=== PATIENT | male | born 1975 | race Asian ===

== ENCOUNTER 2024-12-28 09:09 | Outpatient (CLI) | payer OTHER, SELFPAY ==
--- NOTE | ~2024-12-28 | US_ITS ---
EXAMINATION: US thyroid DATE: 12/28/2024 10:52 INDICATION: Hypothyroidism TECHNIQUE: Multiple ultrasound images of the thyroid were obtained. COMPARISON: None. FINDINGS: The right thyroid lobe measures 6.3 x 2.0 x 3.0 cm. The left thyroid lobe measures 6.2 x 2.1 x 2.8 c m. The thyroid isthmus measures 10 mm thickness. No discrete nodules identified. There is heterogeneo us echogenicity with coarsened echotexture and diffuse increased vascular flow throughout the thyroid on color Doppler which could be seen with thyroiditis. IMPRESSION: 1. Enlarged thyroid with diffuse coarsened echotexture and/or flow on color Doppler suggestive of thy roiditis. No discrete thyroid nodules. Reviewed, dictated and finalized at location A. IMPRESSION: 1. Enlarged thyroid with diffuse coarsened echotexture and/or flow on color Dop pler suggestive of thyroiditis. No discrete thyroid nodules.
--- NOTE | ~2024-12-28 | US_ITS ---
Limited Abdominal Sonogram: Real-time sonographic imaging of the right upper quadrant was performed. Clinical History: Abnormal liver enzymes Findings: The liver appears mildly echogenic with no evidence of mass lesion or bile duct dilatation . Probable focal fatty sparing adjacent to the gallbladder fossa. Main portal vein demonstrates reva l direction of flow. The gallbladder is well distended, and appears normal with no evidence of gallst one or wall thickening. The common bile duct measures 4 mm. The visualized pancreas, aorta, and IVC are unremarkable. Impression: Diffuse fatty infiltration of the liver. Reviewed, dictated and finalized at location M. Impression: Diffuse fatty infiltration of the liver.
--- OUTSIDE RECORDS SUMMARY | 2024-12-28 09:56 | XMS_ITS | Data Portability ---
Author Organization [facility], Main Office Address [address] [place] [address] Care Team Providers Care Charhouse Worker Name Role Phone JAVON OWENS Primary Care Provider Assessment Encounter Date Assessment Date Assessment LastModified by Organization Details LastModified Time 10/18/2023 10/18/2023 11/10/2022: ALT 62 LDL 113 A1C 6.2 Vit D 15.7 04/12/2023: A1C 6.3 VIT D 19.5 ALT 54 TSH 11.9, FT4 0.68 Not available 10/18/2023 10:48:42 04/17/2024 04/17/2024 11/10/2022: ALT 62 LDL 113 A1C 6.2 Vit D 15.7 04/12/2023: A1C 6.3 VIT D 19.5 ALT 54 TSH 11.9, FT4 0.68 10/20/2023: A1C 5.9 VIT D 19.3 TSH 4.780H, FT4 0.57 Not available 04/17/2024 11:18:47 10/30/2024 10/30/2024 11/10/2022: ALT 62 LDL 113 A1C 6.2 Vit D 15.7 04/12/2023: A1C 6.3 VIT D 19.5 ALT 54 TSH 11.9, FT4 0.68 10/20/2023: A1C 5.9 VIT D 19.3 TSH 4.780H, FT4 0.57 Not available 10/30/2024 12:19:26 Plan of Treatment Reminders Order Date Submit Date Provider Last Modified By Organization Details Last Modified Time Details Appointments None recorded. Lab vitamin D, 25-hydroxy , total, serum 2024 025 PAVEL [facility], [address], [place], [address], 5 03:08:11 HbA1c (hemoglobi n A1c), blood 2024 025 PAVEL [facility], [address], [place], [address], 5 03:08:10 microalbum in, urine 2024 025 PAVEL [facility], [address], [place], [address], 5 03:08:12 lipid panel, serum 2024 025 PAVEL [facility], [address], [place], [address], 03:08:09 CMP, serum or plasma 2024 025 PAVEL [facility], [address], [place], [address], 5 03:08:07 CBC w/ auto diff 2024 025 PAVEL [facility], [address], [place], [address], 5 03:08:06 TSH + free T4, serum 2024 025 P[facility]EL [facility], [address], [place], [address], 5 03:08:05 TSH + free T4, serum 2024 025 [email or web address] [facility], [address], [place], [address], 5 13:25:39 vitamin B12 + folate, serum or blood 2024 025 [facility], [address] [facility], [place], [address], 5 03:08:04 vitamin D, 25-hydroxy , total, serum 2023 024 [email or web address] [facility], [address] [facility], [facility] [address], [place], [address], 5 08:47:14 HbA1c (hemoglobi n A1c), blood 2023 024 [email or web address] [facility], [address] [facility], [facility] [address], [place], [address], 5 08:47:15 microalbum in, urine 2023 024 [email or web address] [facility], [address] [facility], [facility] [address], [place], [address], 5 08:47:15 lipid panel, serum 2023 024 [email or web address] [facility], [address] [facility], [facility] [address], [place], [address], 5 08:47:15 CMP, serum or plasma 2023 024 [email or web address] [facility], [address] [place] [address], [facility] [address], [place], [address], 5 08:47:15 CBC w/ auto diff 2023 024 [email or web address] [facility], [address] [place] [address], [facility] [address], [place], [address], 5 08:47:15 TSH + free T4, serum 2023 024 [facility], [address] [facility], [facility] [address], [place], [address], 5 08:47:15 TSH + free T4, serum 2023 024 [facility], [address] [facility], [facility] [address], [place], [address], 5 08:47:15 vitamin B12 + folate, serum or blood 2023 024 [email or web address] [facility], [address] [facility], [facility] [address], [place], [address], 5 08:47:14 vitamin D, 25-hydroxy , total, serum 2023 024 [email or web address] [facility], [address] [place] [address], [facility] [address], [place], [address], 4 10:20:12 HbA1c (hemoglobi n A1c), blood 2023 024 [email or web address] [facility], [address] [place] [address], [facility] [address], [place], [address], 4 10:20:13 microalbum in, urine 2023 024 P[facility]EL [facility], [address] [place] [address], [facility] [address], [place], [address], 4 13:39:42 lipid panel, serum 2023 024 [facility], [address] [place] [address], [facility] [address], [place], [address], 4 13:16:44 CMP, serum or plasma 2023 024 P[facility]EL [facility], [address] [place] [address], [facility] [address], [place], [address], 4 13:16:49 CBC w/ auto diff 2023 024 [facility], [address] [facility], [facility] [address], [place], [address], 4 13:23:00 TSH + free T4, serum 2023 024 [email or web address] [facility], [address] [facility] [address], [place], [address], 4 10:20:13 TSH + free T4, serum 2023 024 [email or web address] [facility], [address] [facility] [address], [place], [address], 4 10:20:13 vitamin B12 + folate, serum or blood 2023 024 [email or web address] [facility], [address] [facility] [address], [place], [address], 4 10:20:[address] referral - Please call patient to schedule an appointmen t. Thank you. 2024 025 [place], [address], [address], [place], [address], 5 09:56:[address] referral 2023 024 2 [place], [address], [address], [place], [address], 5 08:16:14 Procedures colonoscop y screening (PROC) 2023 024 PAVEL Allen MD, [address] [facility], [address], [place], [address], 4 13:49:19 Surgeries septoplast y (SURG) 2023 024 [email or web address] Not available 4 10:18:32 Imaging US, thyroid - Please call patient to schedule. 2024 025 [email or web address] [facility], [address] [facility] , [address], [place], [address], 5 09:04:55 US, thyroid 2023 024 [email or web address] Not available 5 11:27:09 Medication Orders Ciprodex 0.3 %-0.1 % ear drops,susp ension 2023 024 [address] [facility], [address] [place], [address], 5 11:52:33 cefdinir 300 mg capsule 2023 024 [address] [address], [address] [place] [address], [address], 5 11:52:26 Medrol (Jules) 4 mg tablets in a dose pack 2023 024 [email or web address] [facility] #3259, [address] [place] [address], [address], 4 11:30:02 Zyrtec 10 mg tablet 2023 024 PAVEL [facility] #3259, [address] [place] [address], [address], 4 12:03:34 Flonase Allergy Relief 50 mcg/actuat ion nasal spray,susp ension 2023 024 [email or web address] [facility] #3259, [address] [place] [address], [address], 4 15:00:00 Patient TargetsNo targets recorded. Patient InstructionsNo instructions recorded. 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 Thank you. Referring Physician: Javon Owens, Internal Medicine, Encounter Date: 10/30/2024 Results Created Date Observation Date Name Description Value Unit Range Abnormal Flag Note LastModifiedBy Organization Detail LastModifiedTime 10/20/1910/20/2023 LIPID PANEL cholesterol 180 mg/dL 140-19 9 [facility] CHAVA NSUS RECOM MENDA TION FOR LEVY STERO L: ADULT CHILD LOW RISK: <200 <170 BORDE RLINE : <200- 239 ----- HIGH RISK: >240 >[address] [facility] (Lab) [address] [place], [address], 10/20/2023 13:16:44 10/20/19 24 10/20/2023 LIPID PANEL triglyceride s 138 mg/dL 0-150 NIH CHAVA NSUS REPOR T RECOM MENDA TION FOR TRIGL YCERI HOOD: ADULT CHILD LOW RISK: <150 ----- BODER LINE: 150-1 99 ----- HIGH RISK: >200 ----- Not Available [facility] (Lab) [address] [place], [address], 10/20/2023 13:16:44 10/20/19 24 10/20/2023 LIPID PANEL HDL cholesterol 55 mg/dL 40- Not Available [facility] (Lab) [address] [place], [address], 10/20/2023 13:16:44 10/20/19 24 10/20/2023 LIPID PANEL LDL cholesterol, calculated 97 mg/dL 0-130 NIH CHAVA NSUS REPOR T RECOM MENDA TIONS FOR LDL: ADULT CHILD LOW RISK <130 <110 (OPTI MAL LDL) <100 ----- BORDE RLINE : 130-1 59 ----- HIGH RISK: >160 >130 A TRIGL YCERI DE RESUL T >400 INVAL IDATE S THE CALCU LATIO N FOR LDL FRACT IONAT ION - THE LDL RESUL T WILL NOT BE REPOR HANH. Not Available [facility] (Lab) [address] [place], [address], 10/20/2023 13:16:44 10/20/19 24 10/20/2023 COMPR EHENS LORENA METAB OLIC PANEL sodium 142 mmol/ L 137-14 [address] [facility] (Lab) [address] [place], [address], 10/20/2023 13:16:49 10/20/19 24 10/20/2023 COMPR EHENS LORENA METAB OLIC PANEL potassium 4.4 mmol/ L 3.5-5. [address] [facility] (Lab) [address] [place], [address], 10/20/2023 13:16:49 10/20/19 24 10/20/2023 COMPR EHENS LORENA METAB OLIC PANEL chloride 108 mmol/ L 98-107 high Not Available [facility] (Lab) [address] [place], [address], 10/20/2023 13:16:49 10/20/19 24 10/20/2023 COMPR EHENS LORENA METAB OLIC PANEL carbon dioxide 28 mmol/ L 22-[address] [facility] (Lab) [address] [place], [address], 10/20/2023 13:16:49 10/20/19 24 10/20/2023 COMPR EHENS LORENA METAB OLIC PANEL anion gap 10.4 mmol/ L 14-22 low Not Available [facility] (Lab) [address] [place], [address], 10/20/2023 13:16:49 10/20/19 24 10/20/2023 COMPR EHENS LORENA METAB OLIC PANEL glucose 102 mg/dL 70-99 high Not Available [facility] (Lab) [address] [place], [address], 10/20/2023 13:16:49 10/20/19 24 10/20/2023 COMPR EHENS LORENA METAB OLIC PANEL BUN 12 mg/dL 8-[address] [facility] (Lab) [address] [place], [address], 10/20/2023 13:16:49 10/20/1910/20/2023 COMPR EHENS LORENA METAB OLIC PANEL creatinine 0.89 mg/dL 0.66-1 .[address] [facility] (Lab) [address] [place], [address], 10/20/2023 13:16:49 10/20/19 24 10/20/2023 COMPR EHENS LORENA METAB OLIC PANEL GFR >60 Refer ence Range : [facility] GFR Healt hy Adult : >60 mL/mi n/1.7 3 m2 Chron ic Kidne y Disea se: 15-60 mL/mi n/1.7 3 m2 Kidne y Failu re: <15/m L/min /1.73 m2 www.n iddk. nih.g ov The MDRD study equat ion has not been valid ated in child sal <18 years of age; pregn ant women ; the elder ly >85 years of age; or in some racia l or ethni c subgr oups, such as Hisar nics. Outsi de the valid ated saji eters , estim ated GFR is less accur ate, requi ring clini pilar judgm ent on a case- by-ca se basis . Clini pilar inter preta tion for other races and ages must be made by the clini an. The MDRD study equat ion has not been valid ated for the evalu ation of serum creat inine relat ed to nutri karen l statu s or medic ation usage . For perso ns <18 years of age, a pedia tric GFR calcu lator is avail able on the NKF websi te: https ://keyur alarcon.jose ward/piedad storey s/vano qi/gf r_cal culat or Not Available [facility] (Lab) [address] [place], [address], 10/20/2023 13:16:49 10/20/19 24 10/20/2023 COMPR EHENS LORENA METAB OLIC PANEL alkaline phosphatase 51 U/L 38-126 Not Available [facility] (Lab) [address] [place], [address], 10/20/2023 13:16:49 10/20/19 24 10/20/2023 COMPR EHENS LORENA METAB OLIC PANEL alanine aminotransfe rase 61 U/L 0-50 high Not Available [facility] (Lab) [address] [place], [address], 10/20/2023 13:16:49 10/20/19 24 10/20/2023 COMPR EHENS LORENA METAB OLIC PANEL aspartate aminotransfe rase 38 U/L 15-46 Not Available [facility] (Lab) [address] [place], [address], 10/20/2023 13:16:49 10/20/19 24 10/20/2023 COMPR EHENS LORENA METAB OLIC PANEL bilirubin, total 0.80 mg/dL 0.20-1 .[address] [facility] (Lab) [address] [facility] [place], [address], 10/20/2023 13:16:49 10/20/19 24 10/20/2023 COMPR EHENS LORENA METAB OLIC PANEL calcium 9.7 mg/dL 8.4-10 .[address] [facility] (Lab) [address] [place], [address], 10/20/2023 13:16:49 10/20/19 24 10/20/2023 COMPR EHENS LORENA METAB OLIC PANEL total protein 7.6 g/dL 6.3-8. [address] [facility] (Lab) [address] [facility] [place], [address], 10/20/2023 13:16:49 10/20/19 24 10/20/2023 COMPR EHENS LORENA METAB OLIC PANEL albumin 4.7 g/dL 3.4-5. [address] [facility] (Lab) [address] [place], [address], 10/20/2023 13:16:49 10/20/19 24 10/20/2023 COMPR EHENS LORENA METAB OLIC PANEL globulin 2.9 g/dL 2.6-4. [address] [facility] (Lab) [address] [place], [address], 10/20/2023 13:16:49 10/20/19 24 10/20/2023 COMPR EHENS LORENA METAB OLIC PANEL A/G ratio 1.6 ratio 1.0-2. [address] [facility] (Lab) [address] [facility] [place], [address], 10/20/2023 13:16:49 10/20/19 24 10/20/2023 CBC/C OMPLE TE BLD COUNT W/DIF F white blood cells 7.0 x10'3 /uL 4.2-10 .[address] [facility] (Lab) [address] [place], [address], 10/20/2023 13:23:00 10/20/19 24 10/20/2023 CBC/C OMPLE TE BLD COUNT W/DIF F red blood cells 5.56 x10'6 /uL 4.10-5 .[address] [facility] (Lab) [address] [place], [address], 10/20/2023 13:23:00 10/20/19 24 10/20/2023 CBC/C OMPLE TE BLD COUNT W/DIF F hemoglobin 15.6 g/dL 13.2-1 7.[address] [facility] (Lab) [address] [place], [address], 10/20/2023 13:23:00 10/20/19 24 10/20/2023 CBC/C OMPLE TE BLD COUNT W/DIF F hematocrit 47.8 % 39.3-5 0.[address] [facility] (Lab) [address] [place], [address], 10/20/2023 13:23:00 10/20/19 24 10/20/2023 CBC/C OMPLE TE BLD COUNT W/DIF F mean red cell volume 86.0 fL 80.0-9 7.[address] [facility] (Lab) [address] [place], [address], 10/20/2023 13:23:00 10/20/19 24 10/20/2023 CBC/C OMPLE TE BLD COUNT W/DIF F mean red cell hemoglobin 28.1 pg 27.0-3 3.[address] [facility] (Lab) [address] [place], [address], 10/20/2023 13:23:00 10/20/19 24 10/20/2023 CBC/C OMPLE TE BLD COUNT W/DIF F mean RBC HGB concentratio n 32.6 g/dL 31.0-3 6.[address] [facility] (Lab) [address] [place], [address], 10/20/2023 13:23:00 10/20/19 24 10/20/2023 CBC/C OMPLE TE BLD COUNT W/DIF F red cell distribution width 13.3 % 11.8-1 5.[address] [facility] (Lab) [address] [place], [address], 10/20/2023 13:23:00 10/20/19 24 10/20/2023 CBC/C OMPLE TE BLD COUNT W/DIF F platelets 193 x10'3 /uL 150-40 [address] [facility] (Lab) [address] [place], [address], 10/20/2023 13:23:00 10/20/19 24 10/20/2023 CBC/C OMPLE TE BLD COUNT W/DIF F mean platelet volume 12.1 fL 9.0-12 .[address] [facility] (Lab) [address] [place], [address], 10/20/2023 13:23:00 10/20/19 24 10/20/2023 CBC/C OMPLE TE BLD COUNT W/DIF F neutrophils 52.1 % 39.0-7 2.[address] [facility] (Lab) [address] [place], [address], 10/20/2023 13:23:00 10/20/19 24 10/20/2023 CBC/C OMPLE TE BLD COUNT W/DIF F lymphocytes 38.6 % 16.0-4 7.[address] [facility] (Lab) [address] [place], [address], 10/20/2023 13:23:00 10/20/19 24 10/20/2023 CBC/C OMPLE TE BLD COUNT W/DIF F monocytes 6.6 % 5.0-12 .[address] [facility] (Lab) [address] [place], [address], 10/20/2023 13:23:00 10/20/19 24 10/20/2023 CBC/C OMPLE TE BLD COUNT W/DIF F eosinophils 1.7 % 1.0-7. [address] [facility] (Lab) [address] [place], [address], 10/20/2023 13:23:00 10/20/19 24 10/20/2023 CBC/C OMPLE TE BLD COUNT W/DIF F basophils 0.7 % 0.0-2. [address] [facility] (Lab) [address] [place], [address], 10/20/2023 13:23:00 10/20/19 24 10/20/2023 CBC/C OMPLE TE BLD COUNT W/DIF F immature granulocytes 0.3 % 0.00-0 .[address] [facility] (Lab) [address] [place], [address], 10/20/2023 13:23:00 10/20/19 24 10/20/2023 CBC/C OMPLE TE BLD COUNT W/DIF F neutrophils, absolute count 3.62 x10'3 /uL 1.5-8. [address] [facility] (Lab) [address] [place], [address], 10/20/2023 13:23:00 10/20/19 24 10/20/2023 CBC/C OMPLE TE BLD COUNT W/DIF F lymphocytes, absolute count 2.68 x10'3 /uL 1.07-3 .[address] [facility] (Lab) [address] [place], [address], 10/20/2023 13:23:00 10/20/19 24 10/20/2023 CBC/C OMPLE TE BLD COUNT W/DIF F monocytes, absolute count 0.46 x10'3 /uL 0.29-0 .[address] [facility] (Lab) [address] [place], [address], 10/20/2023 13:23:00 10/20/19 24 10/20/2023 CBC/C OMPLE TE BLD COUNT W/DIF F eosinophils, absolute count 0.12 x10'3 /uL 0.02-0 .[address] [facility] (Lab) [address] [place], [address], 10/20/2023 13:23:00 10/20/19 24 10/20/2023 CBC/C OMPLE TE BLD COUNT W/DIF F basophils, absolute count 0.05 x10'3 /uL 0.01-0 .[address] [facility] (Lab) [address] [place], [address], 10/20/2023 13:23:00 10/20/19 24 10/20/2023 CBC/C OMPLE TE BLD COUNT W/DIF F immature granulocytes ,absolute 0.02 x10'3 /uL 0.00-0 .[address] [facility] (Lab) [address] [place], [address], 10/20/2023 13:23:00 10/20/19 24 10/20/2023 CBC/C OMPLE TE BLD COUNT W/DIF F nucleated red blood cells 0.0 % -0 Not Available [facility] (Lab) [address] [place], [address], 10/20/2023 13:23:00 10/20/19 24 10/20/2023 CBC/C OMPLE TE BLD COUNT W/DIF F NRBC# 0.00 x10'3 /uL Not Available [facility] (Lab) [address] [place], [address], 10/20/2023 13:23:00 10/20/19 24 10/20/2023 MICRO ALBUM IN RANDO M URINE microalbumin , urine 10.9 mg/L 0.0-16 .[address] [facility] (Lab) [address] [place], [address], 10/20/2023 13:39:42 10/20/19 24 10/20/2023 T4 FREE free T4 0.57 NG/dL 0.78-2 .19 low Not Available [facility] (Lab) [address] [place], [address], 10/20/2023 13:43:41 10/20/19 24 10/20/2023 TSH thyroid-stim ulating hormone 4.780 uIU/m L 0.465- 4.680 high Not Available [facility] (Lab) [address] [place], [address], 10/20/2023 13:46:09 10/20/19 24 10/20/2023 HEMOG LOBIN A1C HA1C 5.9 % 4.0-6. 0 Diabe ricardo Sophiee jay Crite mercy: <5.7% Consi stent with absen ce of diabe ricardo 5.7-6 .4% Consi stent with incre ased risk for diabe ricardo (pred iabet es) >OR=6 .5% Consi stent with diabe ricardo REFER ENCE: Diabe ricardo Care 2016, 39([place] ppl.1 ):s13 -s22 Not Available [facility] (Lab) [address] [place], [address], 10/20/2023 14:14:22 10/20/19 24 10/20/2023 VITAM IN B12 (CORDELIA CHRIS ) vb12 284 pg/mL 239-93 [address] [facility] (Lab) [address] [place], [address], 10/20/2023 14:17:54 10/20/19 24 10/20/2023 FOLAT E, SERUM /PLAS MA folate 9.59 NG/mL 2.76-2 0.[address] [facility] (Lab) [address] [place], [address], 10/20/2023 14:18:04 10/20/19 24 10/20/2023 VITAM IN D 25-HY DROXY vd25oh 19.3 NG/mL 30-100 low Vitam in D Statu s: Defic ient: <20 ng/mL Insuf ficie nt: 20-29 ng/mL Suffi cient : 30-10 0 ng/mL Not Available [facility] (Lab) [address] [place], [address], 10/20/2023 23:45:13 09/24/19 24 09/24/2023 exerc ise stres s test No observ ation record ed. [email or web address] [facility] [address], [place], [address], 10/24/2023 21:58:01 09/27/19 24 09/24/2023 US, echoc ardio gram No observ ation record ed. [email or web address] [facility] [address], [place], [address], 10/24/2023 21:58:01 09/28/19 24 09/28/2023 CT, coron cristopher calci um score No observ ation record ed. [email or web address] [facility] [address], [place], [address], 10/24/2023 21:58:02 Result Notes None recorded. Problems Name Problem SNOMED Code Status Onset Date Resolution Date Notes Provider Name and Address Organization Details Recorded Time Acute sinusitis 93452029 Active 2021 Not Available [facility] 3 00:05:39 Cobalamin deficiency 725148074 Active 2022 Not Available [facility] 3 00:05:39 Thyroid nodule 990625513 Active 2021 Not Available [facility] 3 00:05:39 Anemia 676143098 Active 2021 Not Available [facility] 3 00:05:39 Vitamin D deficiency 01381066 Active 2021 Not Available [facility] 3 00:05:39 Hypothyroi dism 11830867 Active 2021 Not Available [facility] 3 00:05:39 Vitamin B12 deficiency (non anemic) 82462365 Active 2021 Not Available [facility] 3 00:05:39 Hyperglyce marissa 44997705 Active 2021 Not Available [facility] 3 00:05:39 Serum vitamin B12 below reference range 529786943 Active 2022 Javon prado MD [address] [facility], [facility] [address], [place], [address] , [facility] 3 10:55:56 Essential hypertensi on 59900124 Active 2022 Javon prado MD [address], [place], [address] , [facility] 3 10:57:31 Hyperlipid emia 19502033 Active 2022 Javon prado MD [address], [place], [address] , [facility] 3 10:57:34 Prediabete s 982393970 Active 2022 Javon prado MD [address], [place], [address] , [facility] 3 10:59:52 Liver enzymes level above reference range 302684080 Active 2022 Javon prado MD [address], [place], [address] , [facility] 3 11:15:46 Ultrasonog maria luisa of liver abnormal 2251647059376 9102 Active 2022 Indira garcia, [facility] 3 16:21:49 Cough 45353188 Active 2022 SABRINA Lynn, [facility] 3 18:01:35 Upper respirator y infection 39089527 Active 2022 Indira garcia, [facility] 3 09:46:51 Pain of left shoulder joint 4673892848470 9109 Active 2022 Javon prado MD [address], [place], [address] , [facility] 3 13:37:37 Obstructiv e sleep apnea syndrome 00664386 Active 2023 Javon prado MD [address], [place], [address] , [facility] 4 10:50:49 Otitis media 55413296 Active 2023 Javon prado MD [address], [place], [address] , [facility] 4 14:45:06 Conjunctiv itis 6305217 Active 2023 Meenu Andrews MA null, [facility] 4 14:25:09 Pain in eye 31794135 Active 2023 Meenu Andrews MA null, [place] [facility] 4 14:43:14 Pain of left eye 7721472395012 04 Active 2023 Meenu Andrews MA null, [place] [facility] 4 14:43:25 Otitis media 66502848 Active 2023 Javon prado MD [address], [place], [address] , [facility] 4 12:01:15 Pain of ear 697658432 Active 2023 Meenu Andrews MA null, [facility] 4 14:55:45 Acute otitis externa 00582982 Active 2023 Efrain Garnica MD [address], [place], [address] , [facility] 4 15:09:29 Deviated nasal septum [id number] Active 2023 Efrain Garnica MD [address], [place], [address] , [facility] 4 15:09:37 Problem Notes None recorded. Procedures Surgical History None recorded. Imaging Results Imaging Date Name Status LastModified by Organization Details LastModified Time 09/24/2023 exercise stress test completed [address] [facility] [address], [place], [address], 10/24/2023 21:58:01 09/24/2023 US, echocardiogram completed [address] [facility] [address], [place], [address], 10/24/2023 21:58:01 09/28/2023 CT, coronary calcium score completed [address] [facility] [address], [place], [address], 10/24/2023 21:58:02 Procedure Notes None recorded. Medical Equipment None Reported. Allergies No known drug allergies Medications Name Sig Start Date Stop Date Status Note LastModified by Organization Details LastModified Time atorvastati n 40 mg tablet TAKE 1 TABLET BY MOUTH EVERY DAY active Not Available Not Available No t Available cetirizine 10 mg tablet TAKE 1 TABLET BY MOUTH EVERY DAY NEEDED FOR 90 DAYS active Not Available Not Available No t Available azithromyci n 250 mg tablet TAKE 2 TABLETS BY MOUTH TODAY, THEN TAKE 1 TABLET DAILY FOR 4 DAYS 07/21 completed Not Available Not Available Not Available clomiphene citrate 50 mg tablet TAKE 1 TABLET BY MOUTH EVERY DAY 11/16 completed Not Available Not Available Not Available sertraline 100 mg tablet TAKE ONE TABLET BY MOUTH DAILY 11/16 completed Not Available Not Available Not Available amlodipine 5 mg tablet TAKE 1 TABLET BY MOUTH EVERY DAY active Not Available Not Available No t Available ciprofloxac in 500 mg tablet Take 1 tablet twice a day by oral route. 11/16 completed Not Available Not Available Not Available meloxicam 7.5 mg tablet TAKE 1 TABLET BY MOUTH EVERY DAY NEEDED 05/11 completed Not Available Not Available Not Available Unithroid 50 mcg tablet Take 1 tablet every day by oral route for 90 days. active Not Available Not Available No t Available cyanocobala min (vit B-12) 1,000 mcg/mL injection solution Inject 1 mL every month by subcutane ous route. 04/12 completed Not Available Not Available Not Available neomycin-po lymyxin-dex ameth 3.5 mg/mL-10,00 0 unit/mL-0.1 % eye drops 04/17 completed Not Available Not Available Not Available Unithroid 100 mcg tablet take 1 tablet by mouth once daily active Not Available Not Available No t Available ergocalcife rol (vitamin D2) 1,250 mcg (50,000 unit) capsule TAKE 1 CAPSULE EVERY WEEK BY ORAL ROUTE. 05/11 completed Not Available Not Available Not Available methylpredn isolone 4 mg tablets in a dose pack TAKE 6 TABLETS ON DAY 1 DIRECTED ON PACKAGE AND DECREASE BY 1 TAB EACH DAY FOR A TOTAL OF 6 DAYS 04/17 completed Not Available Not Available Not Available cefdinir 300 mg capsule TAKE 1 CAPSULE BY MOUTH EVERY 12 HOURS 10/30 completed Not Available Not Available Not Available fluticasone propionate 50 mcg/actuati on nasal spray,suspe nsion SPRAY 1 SPRAY NASALLY EVERY DAY 05/11 completed Not Available Not Available Not Available amoxicillin 875 mg-potassiu m clavulanate 125 mg tablet TAKE 1 TABLET BY MOUTH EVERY 12 HOURS FOR 7 DAYS 04/17 completed Not Available Not Available Not Available ciprofloxac in 0.3 %-dexametha sone 0.1 % ear drops,suspe nsion INSTILL 4 DROPS INTO AFFECTED EAR(S) TWICE A DAY FOR 7 DAYS 10/30 completed Not Available Not Available Not Available rosuvastati n 40 mg tablet TAKE 1 TABLET BY MOUTH EVERY DAY 04/15 completed Not Available Not Available Not Available cholecalcif edgar (vitamin D3) 1,250 mcg (50,000 unit) capsule TAKE 1 CAPSULE BY MOUTH ONE TIME PER WEEK 2024 active Not Available Not Available Not Avai lable Vitals Date Recorded Body height Body mass index (BMI) Body weight Body temperature Heart rate Systolic blood pressure Diastolic blood pressure Provider Name and Address Organization Details Last Updated DateTime 4 185.42 cm 29.9 kg/m2 062353. 47 g 97.3 [degF] 78 /min 126 mm[Hg] 78 mm[Hg] SABRINA Lynn [place] - [place] [facility] 4 10:43:18 Date Recorded Body height Body mass index (BMI) Body weight Body temperature Heart rate Respiratory rate Oxygen saturation Oxygen saturation in Arterial blood by Pulse oximetry Pain severity - 0-10 verbal numeric rating [Score] - Reported Systolic blood pressure Diastolic blood pressure Provider Name and Address Organization Details Last Updated DateTime 4 185.42 cm 29.4 kg/m2 302157. 1 g 97.6 [degF] 83 /min 14 /min 96 % 96 % 5 118 mm[Hg] 76 mm[Hg] Skinny Martinez LPN [facility] [employer] [facility] 4 11:23:52 Date Recorded Body height Body mass index (BMI) Body weight Body temperature Heart rate Oxygen saturation Oxygen saturation in Arterial blood by Pulse oximetry Systolic blood pressure Diastolic blood pressure Provider Name and Address Organization Details Last Updated DateTime 4 185.42 cm 30.2 kg/m2 947489. 65 g 98.6 [degF] 93 /min 97 % 97 % 150 mm[Hg] 92 mm[Hg] Sue Saez MA [facility] [employer] [facility] 4 11:34:38 Date Recorded Body height Body mass index (BMI) Body weight Body temperature Provider Name and Address Organization Details Last Updated DateTime 05/11/2024 185.42 cm 30.7 kg/m2 138351.3 g 98.3 [degF] MURRAY Polo [facility] [employer] [facility] 05/11/2024 14:58:15 Date Recorded Body height Body mass index (BMI) Body weight Body temperature Heart rate Systolic blood pressure Diastolic blood pressure Provider Name and Address Organization Details Last Updated DateTime 5 185.42 cm 29.6 kg/m2 506226. 69 g 97.9 [degF] 90 /min 146 mm[Hg] 84 mm[Hg] SABRINA Lynn [facility] [employer] [facility] 5 11:55:15 Social History Question Answer Notes LastModified by Organizat ion Details LastModified Time Tobacco Smoking Status Never [facility] [employer] [facility] 11/16/2022 10:48:24 Do You Have An Advance Directive? No Information not available 11/16/2022 What Is Your Level Of Alcohol Consumption? Occasional Information not available 11/16/2022 What Is Your Level Of Caffeine Consumption? Occasional Information not available 11/16/2022 In The 14 Days Before Symptom Onset, Have You Had Close Contact With A Laboratory-confir med COVID-19 While That Case Was Ill? No Information not available 11/16/2022 In The 14 Days Before Symptom Onset, Have You Had Close Contact With A Person Who Is Under Investigation For COVID-19 While That Person Was Ill? No Information not available 11/16/2022 What Type Of Diet Are You Following? SPECIFIC Kosher Information not available 11/16/2022 Have There Been Any Changes To Your Family Or Social Situation? No [email or web address] Information no t available 04/17/2024 What Is The Fluoride Status Of Your Home? Unknown Information not available 11/16/2022 Are There Any Guns Present In Your Home? No Information not available 11/16/2022 Do You Use Insect Repellent Routinely? No Information not available 11/16/2022 Where Do You Live? [facility] Information not available 11/16/2022 Do You Have A Medical Power Of [place]? No Information not available 11/16/2022 What Was The Date Of Your Most Recent Tobacco Screening? 10/30/2024 Information not available 10/30/2024 Do You Have Any Pets? No Information not available 11/16/2022 What Is Your Relationship Status? Information not available 11/16/2022 Do You Use Your Seat Belt Or Car Seat Routinely? Yes [email or web address] Information not available 01/24/2024 Do You Have Smoke And Carbon Monoxide Detectors In Your Home? Yes Information not available 11/16/2022 Are You Passively Exposed To Smoke? No Information no t available 11/16/2022 Are There Any Smokers In Your House? No Information not available 11/16/2022 Do You Feel Stressed (tense, Restless, Nervous, Or Anxious, Or Unable To Sleep At Night)? [id number] Information not available 11/16/2022 Do You Use Any Illicit Or Recreational Drugs? No Information not available 11/16/2022 Do You Use Sunscreen Routinely? No Information not available 11/16/2022 Has Tobacco Cessation Counseling Been Provided? No N/[email or web address] Information not available 11/16/2022 Have You Recently Traveled Abroad? No Information not available 11/16/2022 Do You Or Have You Ever Used Any Other Forms Of Tobacco Or Nicotine? No Information not available 11/16/2022 Sex: Male Functional Status Question Answer Note LastModified by Organizat ion Details LastModified Time What is your exercise level? Occasional Information not available 11/16/2022 Mental Status None recorded. Family History Relationship Description Onset Age of this Age Resolved Age Notes LastModified by Organization Details LastModified Time Mother Type 2 diabetes mellitus [email or web address] Not available 2023 11:25:10 Mother Cirrhosis of liver [email or web address] Not available 2023 11:25:43 Mother Hearing loss Age relate d hearin g loss. [email or web address] Not available 05/11/2024 15:00:36 Father Congestive heart failure [email or web address] Not available 2023 11:26:07 Medical History Condition Response NERVE DISEASE N BLINDNESS N RHEUMATIC FEVER N KIDNEY STONES N BLADDER PROBLEMS N MRSA N OTHER # 1 N POLIO N LUNG DISEASE/DISORDER N HISTORY OF DRUG ABUSE N RADIATION / CHEMOTHERAPY N COPD N Other # 2 N BLOOD DISEASES N EAR OR HEARING PROBLEMS N MUMPS N SHINGLES N BOWEL PROBLEMS N DEPRESSION (INCLUDING POST ) N FAILED BACK SYNDROME N STROKE/TIA N ULCERS N BENIGN PROSTATIC HYPERPLASIA N MEASLES N HYPOTENSION N MYOCARDIAL INFARCTION N OBESITY N GERD/NAUSEA N ANEURYSM N URINARY/BLADDER/KIDNEY PROBLEMS N CORONARY ARTERY DISEASE (CAD) N Do you have Advance directive? N ADDICTION CONCERNS N ENDOMETRIOSIS N Impotence N USE OF BLOOD THINNERS N SKIN PROBLEMS N GASTROINTESTINAL DISORDER N PERIPHERAL VASCULAR DISEASE N MUSCLE,JOINT OR BONE PROBLEMS N GASTROINTESTINAL BLEEDING N BLOOD CLOTS N ASTHMA N Abdominal Pain N CATARACTS N ARTERIAL INSUFFICIENCY N ERECTILE DYSFUNCTION N VARICOSITIES N GI PROBLEMS N Low Testosterone N INFERTILITY N AIDS/HIV N CHEMOTHERAPY / RADIATION N LIVER DISEASE N MALE HYPOGONADISM N HYPERTENSION Y Deficiency Y TOURETTE'S N ANXIETY DISORDER N BLOOD TRANSFUSION N ANEMIA/BLOOD DISORDER N CHRONIC EAR INFECTIONS N TUBERCULOSIS N GLAUCOMA N FOOT PROBLEM N DIVERTICULITIS N CHICKENPOX N SLEEP APNEA N BACK INJECTIONS N ALLERGIES/HAYFEVER N INFECTIOUS DISEASE N HEART ARRHYTHMIA N PROSTATE N ESRD N INSOMNIA N HIGH CHOLESTEROL / HYPERLIPIDEMIA Y HYPERTHYROIDISM N EYE PROBLEMS N PVD N EDEMA N CHRONIC PAIN SYNDROME N HYPOTHYROIDISM N CONSTIPATION N CAROTID BLOCKAGE N BACK / NECK PROBLEMS N ATHEROSCLEROSIS N BREAST PROBLEMS N DIALYSIS N POLYCYSTIC OVARIES N ECZEMA N OSTEOPOROSIS N ARTHRITIS N NO SIGNIFICANT PAST MEDICAL HISTORY N APPENDICITIS N DIABETES, TYPE N BAD TEETH N VON WILLIBRAND'S DISEASE N ENT N HEARTBURN / REFLUX N GI N AUTISM SPECTRUM DISORDER (ASD) N POST LAMINECTOMY SYNDROME N HEPATITIS / LIVER DISEASE N GOUT N SLEEP DISORDER N ALZHEIMER'S DISEASE N Brain Problems N HERPES N DEMENTIA N HEADACHES/MIGRAINES N SEIZURES/EPILEPSY N VASCULAR DISEASE N PACEMAKER N DIZZINESS N HEART DISEASE/HEART PROBLEMS N KIDNEY DISEASE N MULTIPLE SCLEROSIS N NEUROPSYCHOLOGICAL N CARDIAC ARRHYTHMIA N CANCER: SPECIFY N ATRIAL FIBRILLATION N Gall Stones N PULMONARY EMBOLISM N AUTOIMMUNE DISEASE N Immunizations Vaccine Type Date Status Note Provider Nam e and Address Organization Details Recorded Time COVID-19, mRNA, LNP-S, PF, 30 mcg/0.3 mL dose 11/19/2020 completed SABRINA Lynn [facility] [employer] [facility] 10/30/2024 11:52:54 COVID-19, mRNA, LNP-S, PF, 30 mcg/0.3 mL dose 12/16/2020 completed SABRINA Lynn [facility] [employer] [facility] 10/30/2024 11:52:54 COVID-19, mRNA, LNP-S, PF, 30 mcg/0.3 mL dose, sarah-sucrose 04/21/2022 completed SABRINA Lynn [facility] [employer] [facility] 10/30/2024 11:52:54 Past Encounters Encounter ID Performer Location Encounter Start Date Encounter Closed Date Diagnosis/Indication Diagnosis SNOMED-CT Code Diagnosis ICD10 Code Diagnosis Note [id number] [facility] Internal Med [facility] [address] , [facility] [address] [place] [address] 08/05/2021 00:00:00 08/05/2021 14:11:46 [id number] Javon prado MD [facility] Internal Med [address] [place] [address] 11/16/2022 10:41:00 11/16/2022 11:20:56 Screening - NAD 921716549 Z13.9 UTD COVID 19 vaccineDoe s not do flu shotGet Tdap RTC in 3 months Do labsER if worseHe and his did verbalize his understand ing of the above Serum rochelle min B12 below reference range 133865259 R79.89 On B12Get labs Vitamin D deficiency 347 25216 E55.9 Hypothyroidism 03379824 E03.9 US thyroid 05/13/2022 , 07/03/2022 Next in 06/28Get labs Essential hypertension 07002330 I10 On amlodipine 5mg dailyGet labs Hyperlipidemia 21437881 E78.5 On rosuvastat in 40mg dailyGet labs Prediabetes 404640189 R7 3.03 More diet and exercise neededGet labs Liver enzy mes level above reference range 045772664 R74.01 Get hepatitis panelGGT and US liver Screening for malignant neoplasm of colon 054646498 Z12.11 [id number] Javon prado MD [facility] Internal Med [facility] [address] [facility] [place] [address] 04/12/2023 10:27:31 04/12/2023 10:50:51 Screening - NAD 536332158 Z13.9 PAD COVID 19 vaccineDoe s not do flu shotGet Tdap RTC in 3 months Do labsER if worseHe and his did verbalize his understand ing of the above Serum rochelle min B12 below reference range 419563202 R79.89 Did get his B12 doneGet labs Vitamin D deficiency 347 86140 E55.9 Hypothyroidism 20172637 E03.9 US thyroid 05/13/2022 , 07/03/2022 Next in 06/28Get labs Essential hypertension 13672648 I10 On amlodipine 5mg dailyGet labs Hyperlipidemia 45000624 E78.5 On rosuvastat in 40mg dailyGet labs Prediabetes 165194412 R7 3.03 More diet and exercise neededGet labs Liver enzy mes level above reference range 861447242 R74.01 Get hepatitis panelGGT and US liver US liver 11/20/2022 : rec CTCT A/P 01/06/2023 : negGGT: 73 11/16/2022 Screening for malignant neoplasm of colon 808497460 Z12.11 [id number] Javon prado MD [facility] Internal [facility] [address] [place] [address] [place] [address] 07/21/2023 13:20:55 07/21/2023 13:39:46 Pain of left shoulder joint 7986915142 1143233 M25.512 Get xrays, get on meloxicamM ay need PT or see ortho Screening for cardiovascular system disease 187144893 Z13.6 Get a referral to cardiology Can see Dr Adames [id number] Javon prado MD [facility] Internal [address] [place] [address] 10/18/2023 10:34:40 10/18/2023 11:09:55 Screening - NAD 482127375 Z13.9 C-scope: Get this done UTD COVID 19 vaccineDoe s not do flu shotGet Tdap RTC in 3 months Do labsER if worseHe and his did verbalize his understand ing of the above Serum rochelle min B12 below reference range 884633553 R79.89 Did get his B12 doneGet labs Vitamin D deficiency 347 47577 E55.9 Hypothyroidism 36146611 E03.9 US thyroid 05/13/2022 , 07/03/2022 Next in 06/28Get labs Essential hypertension 64152166 I10 Stress test 09/24/2023 ECHO 09/24/2023 CT Ca Score 09/28/2023 [facility] 10/06/2023 , f/u in 6 months On amlodipine 5mg dailyGet labs Hyperlipidemia 35547589 E78.5 On rosuvastat in 40mg dailyGet labs Prediabetes 120574463 R7 3.03 More diet and exercise neededGet labs Liver enzy mes level above reference range 495562930 R74.01 Get hepatitis panelGGT and US liver US liver 11/20/2022 : rec CTCT A/P 01/06/2023 : negGGT: 73 11/16/2022 Screening for malignant neoplasm of colon 316847618 Z12.11 Obstructiv e sleep apnea syndrome 32325118 G47.[address] Adames [facility] [id number] Javon prado MD [facility] Internal Med [place] [address] [place] [address] [place] [address] 01/24/2024 11:05:43 01/24/2024 12:01:01 Otitis media 53704748 H66.93 Addendum: 01/03/2024 L>R earache, also has some URI symptomsWi ll start on augmentin 875mg po bid for 7 days, notify if not better, ER if worse OV 01/24/2024 :States that the L>R earache persists, states that he was not compliant with his antibiotic , will styart on MDP, zyrtec and flonaseIf still not better will get a referral to ENT [id number] Javon prado MD [facility] Internal [facility] [place] [address] [place] [address] [place] [address] 04/17/2024 11:17:08 04/17/2024 12:00:07 Screening - NAD 292554154 Z13.9 C-scope: Dr Carlisle 12/14/2023 : Dr Carlisle, next in 10 years UTD COVID 19 vaccineDoe s not do flu shotGet Tdap RTC in 3 months Do labsER if worseHe and his did verbalize his understand ing of the above Serum rochelle min B12 below reference range 361904440 R79.89 Did get his B12 doneGet labs Vitamin D deficiency 347 57874 E55.9 Hypothyroidism 93065489 E03.9 On levothyrox ine 50mcgs daily US thyroid 05/13/2022 , 07/03/2022 Next in 06/28Get labs Essential hypertension 39990894 I10 Stress test 09/24/2023 ECHO 09/24/2023 CT Ca Score 09/28/2023 [facility] 10/06/2023 , f/u in 6 months On amlodipine 5mg dailyGet labs Hyperlipidemia 34853061 E78.5 Not on rosuvastat in 40mg dailyOn atorvastat in 40mg dailyGet labs Prediabetes 812326599 R7 3.03 More diet and exercise neededGet labs Liver enzy mes level above reference range 640957829 R74.01 Get hepatitis panelGGT and US liver US liver 11/20/2022 : rec CTCT A/P 01/06/2023 : negGGT: 73 11/16/2022 Dr Carlisle 11/02/2023 Obstructiv e sleep apnea syndrome 06718087 G47.[address] Adames [facility] Otitis media 66395545 H6 6.93 Addendum: 01/03/2024 L>R earache, also has some URI symptomsWi ll start on augmentin 875mg po bid for 7 days, notify if not better, ER if worse OV 01/24/2024 :States that the L>R earache persists, states that he was not compliant with his antibiotic , will styart on MDP, zyrtec and flonaseIf still not better will get a referral to ENT OV 04/17/2024 : Now will see ENT, referral was provided for Dr Garnica in the past [id number] Efrain Garnica MD [facility] ENT [place] [address] [place] [address] 05/11/2024 14:51:15 05/12/2024 13:10:21 Acute otitis externa 64407694 H60.509 Deviated nasal septum 12 1667329 J34.2 [id number] Javon prado MD [facility] Primary Care [facility] [address] [facility] [address] [place] [address] 10/30/2024 11:44:16 10/30/2024 12:53:50 Screening - NAD 028402603 Z13.9 C-scope: Dr Carlisle 12/14/2023 : Dr Cralisle, next in 10 years UTD COVID 19 vaccineDoe s not do flu shotGet Tdap RTC in 3 months Do labsER if worseHe and his did verbalize his understand ing of the above Serum rochelle min B12 below reference range 670766410 R79.89 Did get his B12 doneGet labs Vitamin D deficiency 347 12187 E55.9 Hypothyroidism 98202628 E03.9 On unithroid 50mcgs daily US thyroid 05/13/2022 , 07/03/2022 Next in 06/28Get labs Essential hypertension 38870459 I10 Stress test 09/24/2023 ECHO 09/24/2023 CT Ca Score 09/28/2023 [facility] 10/06/2023 , f/u in 6 months On amlodipine 5mg dailyGet labs Hyperlipidemia 69965757 E78.5 Not on rosuvastat in 40mg dailyOn atorvastat in 40mg dailyGet labs Prediabetes 845198742 R7 3.03 More diet and exercise neededGet labs Liver enzy mes level above reference range 193715267 R74.01 Get hepatitis panelGGT and US liver US liver 11/20/2022 : rec CTCT A/P 01/06/2023 : negGGT: 73 11/16/2022 Dr Carlisle 11/02/2023 Obstructiv e sleep apnea syndrome 98311774 G47.[address] Adames [facility] Otitis media 63479391 H6 6.93 Addendum: 01/03/2024 L>R earache, also has some URI symptomsWi ll start on augmentin 875mg po bid for 7 days, notify if not better, ER if worse OV 01/24/2024 :States that the L>R earache persists, states that he was not compliant with his antibiotic , will styart on MDP, zyrtec and flonaseIf still not better will get a referral to ENT OV 04/17/2024 : Now will see ENT, referral was provided for Dr Garnica in the past OV 10/30/2024 : Does well now Health Concerns Section Related Observation LastModified by Organization Detai ls LastModified Time None Recorded Concern Status LastModified by Organization Details LastModified Time None Recorded Advance Directives Directive N: Payers Encounter Date Sequence Insurance Name Policy Number Policy Pineda Covered Member ID Pineda Member ID Guarantor Name 10/18/2023 1 [employer] [id number] Glen Adames [id number] Glen Adames 01/24/2024 1 [employer] [id number] [facility] Zacarias [id number] Glen Adames 04/17/2024 1 UMR [id number] [facility] Zacarias [id number] Glen Adames 05/11/2024 1 UMR [id number] [facility] Zacarias [id number] [facility] Zacarias 10/30/2024 1 UMR [id number] Glen Adames [id number] Glen Adames Notes Date Note Type Note Provider Name and Address Organization Details Recorded Time 10/18/2023 text/html OV 08[facility]05[facility]2021[facility]x:NoneReviewed social history (drinks alcohol)Here as he has URI sx for the past 3-4 daysC/o nasal and sinus congestionNo fevers or chillsNo chest pain or SOBNo rashNo blood in urine or stoolNo exposure to COVID 19, states that he has been immunized for COVID 19 OV 11/16/2022:Here for his f/u apt, he is here with his , he feels very well today OV 04/12/2023: Here for his f/u apt, here with his , is doing well today, no new labs noted OV 07/21/2023: ACV: C/o L posterior shoulder pain, feels that there are 'lumps; on the shoulder blade and they feels 'tight' and can cause pain with movement, states that the lumps now are almost gone, but he would like to get this checked outHe also would like to get a referral to cardiology, just for screening OV 10/18/2023: Here for his routine apt, he is doing well today and is here with his Javon Owens MD [address] [place] [address], [phone], [facility] [employer] 10/18/2023 11:58:59 01/24/2024 text/html OV 08/05/2021:[facility] Hx:NoneReviewed social history (drinks alcohol)Here as he has URI sx for the past 3-4 daysC/o nasal and sinus congestionNo fevers or chillsNo chest pain or SOBNo rashNo blood in urine or stoolNo exposure to COVID 19, states that he has been immunized for COVID 19 OV 11/16/2022:Here for his f/u apt, he is here with his , he feels very well today OV 04/12/2023: Here for his f/u apt, here with his , is doing well today, no new labs noted OV 07/21/2023: ACV: C/o L posterior shoulder pain, feels that there are 'lumps; on the shoulder blade and they feels 'tight' and can cause pain with movement, states that the lumps now are almost gone, but he would like to get this checked outHe also would like to get a referral to cardiology, just for screening OV 10/18/2023: Here for his routine apt, he is doing well today and is here with his OV 01/24/2024: ACV: C/o L>R ear ache, ongoing since at least a month, was given augmentin but did not take this as prescribed, now has intermittent sharp ear pain, no d/c, no bleeding, no dizziness, no SOB, or cough or any other URI sx, feels that his 'allergies' have flared up Javon Owens MD [address] [place] [address], [facility] [address], [place], [address], [place] [facility] [employer] 01/24/2024 12:21:36 04/17/2024 text/html OV 08/05/2021:dwaine melvin visit to establish careNhst Hx:NoneReviewed social history (drinks alcohol)Here as he has URI sx for the past 3-4 daysC/o nasal and sinus congestionNo fevers or chillsNo chest pain or SOBNo rashNo blood in urine or stoolNo exposure to COVID 19, states that he has been immunized for COVID 19 OV 11/16/2022:Here for his f/u apt, he is here with his , he feels very well today OV 04/12/2023: Here for his f/u apt, here with his , is doing well today, no new labs noted OV 07/21/2023: ACV: C/o L posterior shoulder pain, feels that there are 'lumps; on the shoulder blade and they feels 'tight' and can cause pain with movement, states that the lumps now are almost gone, but he would like to get this checked outHe also would like to get a referral to cardiology, just for screening OV 10/18/2023: Here for his routine apt, he is doing well today and is here with his OV 01/24/2024: ACV: C/o L>R ear ache, ongoing since at least a month, was given augmentin but did not take this as prescribed, now has intermittent sharp ear pain, no d/c, no bleeding, no dizziness, no SOB, or cough or any other URI sx, feels that his 'allergies' have flared up OV 04/17/2024: Here for his f/u apt, he is doing well, no new labs noted Javon Owens MD [address] [facility], [facility] [address], [place], [address], [facility] [employer] [facility] 04/17/2024 14:19:25 05/11/2024 text/html this patient developed left greater than right otalgia proximally 2 months ago he has no hearing loss no dizziness. There is no tinnitus. Was placed on antibiotics which helped but he did not complete the course. In addition he is a loud snorer and a mouth breather. Efrain Garnica MD [address] [facility], [facility] [address], [place], [address], [facility] [employer] 05/11/2024 15:11:16 10/30/2024 text/html OV 08/05/2021:dwaine melvin visit to establish careNhst Hx:NoneReviewed social history (drinks alcohol)Here as he has URI sx for the past 3-4 daysC/o nasal and sinus congestionNo fevers or chillsNo chest pain or SOBNo rashNo blood in urine or stoolNo exposure to COVID 19, states that he has been immunized for COVID 19 OV 11/16/2022:Here for his f/u apt, he is here with his , he feels very well today OV 04/12/2023: Here for his f/u apt, here with his , is doing well today, no new labs noted OV 07/21/2023: ACV: C/o L posterior shoulder pain, feels that there are 'lumps; on the shoulder blade and they feels 'tight' and can cause pain with movement, states that the lumps now are almost gone, but he would like to get this checked outHe also would like to get a referral to cardiology, just for screening OV 10/18/2023: Here for his routine apt, he is doing well today and is here with his OV 01/24/2024: ACV: C/o L>R ear ache, ongoing since at least a month, was given augmentin but did not take this as prescribed, now has intermittent sharp ear pain, no d/c, no bleeding, no dizziness, no SOB, or cough or any other URI sx, feels that his 'allergies' have flared up OV 04/17/2024: Here for his f/u apt, he is doing well, no new labs noted OV 10/30/2024: Here for his f/u apt, he feels well today, no new labs Javon Owens MD [address] [facility], [address], [place], [address], [facility] 10/30/2024 18:12:25
--- OUTSIDE RECORDS SUMMARY | 2024-12-28 09:56 | XMS_ITS | CONTINUITY OF CARE DOCUMENT ---
Author Name bruno carr Address Unknown Organization [facility] Address [address] [place] [address] Phone [phone] Care Team Providers Care Procurement Technician Name Role Phone Zacarias PURDY, Chika Unavailable LYUBOV NEWTON MD Unavailable [phone] LYUBOV NEWTON MD Unavailable PROBLEMS Condition Status Date Provider Notes Sleep apnea, moderate active Chika Lezama Abnormal routine stress test , low calcium score 19 active Chika Adames MD Prediabetes active Chika Adames MD Hypertension active Chika Adames MD Chest pain--echo nl ef, calc ium score 09/2023 active Chika Adames MD Family hx of heart disease, CAD, carotid disease active Chika Adames MD Hypothyroidism active Chika Adames MD Cardiology examination active Jona Patel ENCOUNTERS Date Type Provider Location Encounter Diag nosis - In-person encounter Office Visit Chika Adames MD [facility] Cardiology examination - In-person encounter Office Visit Chika Adames MD [facility] PrediabetesHypertensionChest pain--echo nl ef, calcium score 09/2023Family hx of heart disease, CAD, carotid diseaseHypothyroidism VITAL SIGNS Date Observation Value Provider Body Mass Index (Ratio) 29.42 kg/m2 Raphael Adames MD blood pressure, diastolic 112 mm[Hg] Li nkLogic blood pressure, systolic 164 mm[Hg] Nelly kLogic blood pressure, diastolic 112 mm[Hg] Fa bibiana Amor blood pressure, systolic 164 mm[Hg] Rich deedeekimberly Chinchilla blood pressure, cuff size regular Fa bibiana Amor oxygen saturation, oximetry 97 % Ramses Amor pulse rate 71 /min [place] Chinchilla weight E&M 223 [lb_av] Ramses Amor height E&M 73 [in_i] [place] Chinchilla weight E&M 225 [lb_av] Yajaira Bina lo Body Mass Index (Ratio) 29.68 kg/m2 Raphael Adames MD blood pressure, cuff size regular esperanza Coyne blood pressure, diastolic 106 mm[Hg] [facility] blood pressure, systolic 149 mm[Hg] [facility] oxygen saturation, oximetry 98 % [facility] respiratory rate E&M 16 /min Kasandra kerr pulse rate 75 /min [facility] weight E&M 225 [lb_av] [facility] height E&M 73 [in_i] [facility] HISTORY OF MEDICATION USE Medication Status Instructions Dates Provider Indications Com ments atorvastatin 40 mg tablet active TAKE 1 TABLET BY MOUTH EVERY EVENING 5 Jona Patel amlodipine 10 mg tablet active TAKE 1 TABLET BY MOUTH EVERY EVENING 5 Jona Patel levothyroxine 75 mcg tablet active TAKE 1 TABLET BY MOUTH EVERY MORNING 1 HOUR BEFORE FOOD OR DRINK 5 Chika Adames MD levothyroxine 50 mcg tablet completed - 5 Jona Patel meloxicam 7.5 mg tablet completed - 5 Jnoa Patel amlodipine 5 mg tablet completed - 5 Jonajeremi Carsonmagui atorvastatin 40 mg tablet completed - 5 Jonajeremi Carsonmagui SOCIAL HISTORY Date Observation Value Provider smoking status Never smoker Jona Burnsandre social history E&M S moking History: P hue has never smoked. Jona Chacondong smoking status Never smoker Kasandra Coyne social history reviewed E&M reviewed - no changes required Jona Inesdong INSURANCE PROVIDERS Payer name Policy type / Coverage type Man red green party ID [employer] insurance [employer] [facility] [employer] Commercial insurance co mpany [id number] ADVANCE DIRECTIVES Name Date DISCUSSED - NO DECISION MADE TREATMENT PLAN Date Name Performer [id number],S, Jona Burns i [id number],S, Jona Katy i [id number],S, Jona Burns i [id number],S, Jona Burns i Cardiology Chika Adames MD Cardiology: T he following medications were removed from the medication list: Levothyroxine 50 Mcg Tablet (Levothyroxine) His updated medication list for this problem includes: Levothyroxine 75 Mcg Tablet (Levothyroxine) ..... Take 1 tablet by mouth every morning 1 hour before food or drink Chika Adames MD Cardiology Chika Adames MD Cardiology:This visi t has been a part of the consistent, comprehensive, and ongoing management of the chronic medical condition(s) listed above for the patient. BP today: 164/112 P rior BP: 149/106 (07/27/2023) The following medications were removed from the medication list: Amlodipine 5 Mg Tablet (Amlodipine) His updated medication list for this problem includes: Amlodipine 10 Mg Tablet (Amlodipine) ..... Take 1 tablet by mouth every evening Chika Adames MD Cardiology: T he following medications were removed from the medication list: Amlodipine 5 Mg Tablet (Amlodipine) His updated medication list for this problem includes: Amlodipine 10 Mg Tablet (Amlodipine) ..... Take 1 tablet by mouth every evening Chika Adames MD Cardiology Chika Adames MD Telehealth Jona Ahmedzaandre Telehealth Jnoa Ahmedzai Telehealth Jona Ahmedzai Telehealth Jona Ahmedzai Telehealth Jona Ahmedzai Telehealth Jona Ahmedzai Cardiology Jona Ahmedzai Cardiology Jona Ahmedzai Cardiology J[facility] Ahmedzai [facility], Coronary Calcium Score Sleep Study Titratio n Stress Routine CT, Coronary Calcium Score Complete Echo Sleep Study Home HISTORY OF PROCEDURES Procedure Date Procedure Name Provider Procedure Notes S tatus Complex e/m visit add on Chika Adames MD completed EKG Chika Adames MD completed CT- Coronary CA score Chika Adames MD completed
== END 2024-12-28 09:10 | disposition home or self-care (01) ==
PROVIDERS: PCP Internal Medicine; Visit Provider Internal Medicine
DX: R74.01 Elevation of levels of liver transaminase levels (principal); E03.9 Hypothyroidism, unspecified; K76.0 Fatty (change of) liver, not elsewhere classified
CPT/HCPCS: 76536; 76705